=== PATIENT | male | born 1945 | race Caucasian/White ===

== ENCOUNTER 2024-01-15 06:09 | Observation (INO) ==
--- NOTE | 2023-12-11 11:26 | PAT Medication Instructions ---
Medication Instructions Date of Service December 11, 2023 Home Medications tamsulosin 0.4 mg capsule 0.4 mg PO HS Take evening before surgery tamsulosin 0.4 mg capsule 0.4 mg PO HS NOTHING TO EAT OR DRINK AFTER MIDNIGHT Other Notes If you have any questions please call us at [phone] or [phone] or [phone] or [phone]
--- NOTE | 2023-12-18 11:16 | Anesthesiology Consultation ---
Date of Service December 18, 2023 Assessment & Plan (1) Encounter for pre-operative examination: - Infectious disease screening: Per assessment on 12/18/23: No known recent infectious disease contacts or current infectious disease symptoms. - Outpatient joint assessment: Pt currently scheduled for inpatient pathway. If surgeon requests review for outpatient joint pathway, patient is not recommended candidate for outpatient joint program from anesthesia standpoint based on available information. - Patient acceptable risk for surgery pending surgeon-ordered PCP preop evaluat ion ([facility], appt 01/01). Chart Review Chart Review: Patient seen in Pre Admission Testing Teaching & Discussion Pre-Anesthesia Teaching/Discussion Notes: Instructed NPO after midnight before surgery,except medications with 15 cc of water. Medication instructions provided according to the PAT guidelines. History Surgery Operation Date: 01/15/24 07:00 Proposed Procedures p Left Total Knee Arthroplasty - Vaughn Avalos MD Height/Weight Height: 5 ft 10 in Weight: 75.5 kg Allergies Allergy/AdvReac Type Severity Reaction Status Date / Time adhesive tape Allergy Intermediate welts Verified 12/11/23 08:31 Medications Home Medications Medication Instructions Recorded Confirmed Last Taken tamsulosin 0.4 mg capsule 0.4 mg PO HS 02/20/19 12/11/23 Unknown Past Medical History Medical History History of prostate cancer Brachytherapy 2009 Osteoarthritis Hx of Clostridium difficile infection Required fecal matter transplant 2018 No current/recent issues History of diverticulitis Most recent flare 2018 Hx of hepatitis As child (? Type, "infectious") No current/recent issues Hx of cardiac pacemaker Implanted 2009 and removed after ablation 2010 (after SVT corrected) Hx of supraventricular tachycardia "Resolved" after 2010 ablation Evaluated by cardiology in 2019 for preop/dyspnea evaluation. [facility]HC was unremarkable. Advised to f/u with cardiology PRN. Patient underwent left carpectomy of wrist at outside facility without issue. Patient states patient feels stable/unchanged since last cardio evaluation (no new/worsening issues). Exercise / Class Metabolic Activity III < 4 Walking/Shop/Light housework (one FS: No CP, + SOB) Past Family History Family History Other No family history of adverse response to anesthesia No significant family history Past Surgical History Surgical History Status post cardiac pacemaker procedure Implanted 2009 and removed after ablation 2010 (after SVT corrected) Status post proximal row carpectomy of wrist Left H/O arthroscopy of left knee x2 H/O shoulder surgery Left Hx of vasectomy + reversal History of cataract surgery R/L History of discectomy lumbar Hx of prostate biopsy History of colonoscopy [place] teeth removed History of carpal tunnel release R/L History of cardiac cath Several, most recent [facility] 2018 No stents H/O cardiac radiofrequency ablation 2011 at [place], [place] Past Anesthesia History No Hx of Anesthesia Complications and No Family Hx of Anesthesia Complications History of PONV No Hx of PONV and No Hx of Motion Sickness Social History Smoking Status: Never smoker Do You Dip or Chew Tobacco: No Hx Alcohol Use: Yes Alcohol type: beer alcohol intake frequency: a few times a week substance use type: does not use Review of Systems Patient denies chest pain, shortness of breath, fever, chills, cough, wheezing, palpitations. Physical Exam Vital Signs BP 115/81 P 59 TEMP 97.6 SP02 97%RA RESP 18 Physical Full cervical extension range of motion. Full TMJ range of motion. TMD 3 finger breaths Mallampati Score I Dentition: intact Lungs: clear throughout to auscultation Cardiac: regular rate and rhythm, no murmurs noted Spine: normal Carotid arteries: negative bruit Extremities: no LE edema Lab Results Anesthesia Preop Results Results Anesthesia Widget: WBC 11.62 K/ul (4.8-10.8) H 12/18/23 Hgb 13.0 g/dl (14.0-18.0) L 12/18/23 Hct 39.5 % (42.0-52.0) L 12/18/23 Plt 298 K/uL (130-400) 12/18/23 Na 136 mmol/L (136-145) 12/18/23 K 4.2 mmol/L (3.5-5.1) 12/18/23 Cl 103 mmol/L (98-107) 12/18/23 CO2 27 mmol/L (21-32) 12/18/23 BUN 21 mg/dl (6-23) 12/18/23 Creat 0.81 mg/dl (0.6-1.4) 12/18/23 Glucose Level 99 mg/dl (70-99(Fasting)) 12/18/23 PT 10.3 Seconds (9.0-12.0) 12/18/23 PTT 28 Seconds (21-31) 12/18/23 INR 0.9 (0.9-1.1) 12/18/23 Urine Color Yellow 12/18/23 Urine Appearance Clear (Clear) 12/18/23 Urine pH 5.5 (4.5-7.5) 12/18/23 Urine Specific [place] 1.018 (1.000-1.030) 12/18/23 Urine Protein Negative (Negative) 12/18/23 Urine Glucose (UA) Negative (Negative) 12/18/23 Urine Ketones Negative (Negative) 12/18/23 Urine Blood Negative (Negative) 12/18/23 Urine Nitrite Negative (Negative) 12/18/23 Urine Bilirubin Negative (Negative) 12/18/23 Urine Urobilinogen Negative (Negative) 12/18/23 Urine Leukocyte Esterase Negative (Negative) 12/18/23 Blood Type O Positive 12/18/23 Antibody Screen NEGATIVE 12/18/23 Testing Electrocardiogram Date: 12/18/23 SB at 52bpm. 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 Chest X-Ray Date: 12/18/23 FINDINGS: Lung volumes are normal. Lungs are clear. There is no pneumothorax or pleural effusion. Cardiac size is normal. Mediastinal contours are normal. There is no evidence for pulmonary edema. A lead projecting over the right subclavian vein is unchanged in position since prior exam. IMPRESSION: No acute cardiopulmonary findings. Echocardiogram Date: 01/07/19 LVEF 55 to 60%. Borderline mild concentric LVH. Mildly redundant mitral valve leaflets with no significant prolapse.. Trace physiologic regurgitation and no stenosis. RV is normal in size and contractility. Normal RV/PA systolic pressure, estimated 25 mmHg. Cardiac Catheterization Date: 03/18/19 RHC Normal right and left-sided filling pressures with exercise. Reduced cardiac index. Recommendations: Continue observation.
--- NOTE | 2023-12-18 15:21 | History & Physical Report ---
Date of Service December 18, 2023 Assessment & Plan (1) Osteoarthritis of left knee: Plan: PRE-OP Diagnosis: Left knee osteoarthritis Planned Procedure: Left total knee arthroplasty Plan: Patient is scheduled to undergo this procedure at the [facility] with Dr. Avalos on Monday, January 15, 2024. Risks and complications of the procedure such as: Infection, bleeding, pain, scarring, nerve blood vessel damage, weakness, wound problems, stiffness, incomplete relief of symptoms, hardware failure, hardware loosening, wear, fracture, tendon or ligament injury, blood clots, embolism, cardiac, stroke and were explained to the patient at his visit today and informed consent for the procedure was obtained. We will need to obtain preoperative medical clearance from the patient's primary care provider. Patient is scheduled to meet with her on January 01 at 9:25 AM. Patient is scheduled to meet with anesthesia at the hospital later this morning. While there he will obtain a CBC with differential, complete metabolic panel, PT/INR, PTT, blood type and screen, urinalysis, urine culture and sensitivity, EKG and a chest x-ray. During today's visit we reviewed the total knee packet. I provided the patient with paperwork to obtain obtaining a handicap placard for his vehicle. I provided him with information about lectures offered by [facility] in regards to joint replacement surgery. Patient has a walker that he will bring with him on the morning of surgery. I recommended that he purchase a shower chair and raised toilet seat. We discussed discharge planning from the hospital. Patient states he will would like to do outpatient physical therapy following surgery and is already contacted a service near his home and [place]. I provided him with an order for this along with his rehab protocol.. I advised the patient that he will be provided with a prescription for narcotic pain medication for postoperative pain control. We will have him on Eliquis twice daily for the first 30 days postoperatively for blood clot prevention. Patient is scheduled for his 2-week postoperative follow-up visit with Claudia on January 29. This chart was completed utilizing [employer] voice recognition software. Grammatical errors, random word insertions, pronoun errors, and in complete sentences are an occasional consequence of the system. Any questions or concerns about the content, text, or information contained within the body of this dictation should be addressed directly to the physician for clarification. History of Present Illness Chief Complaint: Chief Complaint: Left knee pain Primary Care Provider: Albino De Oliveira MD History of Present Illness (including history relevant to procedure): This 78-year-old male presents to clinic today for his preoperative history and physical. Patient has a longstanding history of left knee pain with multiple trials of conservative management including multiple corticosteroid injections, use of nonsteroidal agents, viscosupplementation, PRP, radiofrequency ablation and 2 arthroscopic procedures. Patient states that his pain is persistent and intermittently radiates up and down his leg. He feels that his gait is affected and at times he does develop pain in his hip. 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 He states that he golfs on a regular basis and the pain in his knee makes it difficult to complete an entire round. Patient is elected to proceed with surgical intervention at this time. Review Of Systems: A 12 point review of systems is performed and is unremarkable except for those things stated in the HPI past medical history. Past Medical History: Problems: Osteoarthritis of left knee History of prostate cancer Procedure History Procedure Procedure Date Comments Spine surgery Shoulder surgery Cataract removal Carpectomy Left knee arthroscopy x 2 Bilateral carpal tunnel and cubital tunnel release Allergies and Sensitivities: Adhesives Current Home Meds: (Last Updated 12/17 09:42) tamsulosin (tamsulosin 0.4 mg oral capsule) 0.4 mg PO Daily Allergies Allergy/AdvReac Type Severity Reaction Status Date / Time adhesive tape Allergy Intermediate welts Verified 12/11/23 08:31 Home Medications Medication Instructions Recorded Confirmed Type tamsulosin 0.4 mg capsule 0.4 mg PO HS 02/20/19 12/11/23 History Past Med/Surg History Problem List (Updated 12/18/23 @ 15:20 by Gino Richards PA-C) Osteoarthritis of left knee Encounter for pre-operative examination Medical History History of prostate cancer Brachytherapy 2009 Osteoarthritis Hx of Clostridium difficile infection Required fecal matter transplant 2018 No current/recent issues History of diverticulitis Most recent flare 2018 Hx of hepatitis As child (? Type, "infectious") No current/recent issues Hx of cardiac pacemaker Implanted 2009 and removed after ablation 2010 (after SVT corrected) Hx of supraventricular tachycardia "Resolved" after 2011 ablation Evaluated by cardiology in 2019 for preop/dyspnea evaluation. RHC was unremarkable. Advised to f/u with cardiology PRN. Patient underwent left carpectomy of wrist at outside facility without issue. Patient states patient feels stable/unchanged since last cardio evaluation (no new/worsening issues). Surgical History Status post cardiac pacemaker procedure Implanted 2009 and removed after ablation 2010 (after SVT corrected) Status post proximal row carpectomy of wrist Left H/O arthroscopy of left knee x2 H/O shoulder surgery Left Hx of vasectomy + reversal History of cataract surgery R/L History of discectomy lumbar Hx of prostate biopsy History of colonoscopy [place] teeth removed History of carpal tunnel release R/L History of cardiac cath Several, most recent [facility]HC 2019 No stents H/O cardiac radiofrequency ablation 2011 at [place], [place] Family History Other No family history of adverse response to anesthesia No significant family history Social History Smoking Status: Never smoker Second Hand Exposure: Yes (as a child); Do You Dip or Chew Tobacco: No; Hx Alcohol Use: Yes Alcohol type: beer Preferred Language: Vietnamese Communication Ability: Effective Police Liaison Officer Required: No Beliefs That Will Affect Care: None Current Living Situation: Spouse Feels Safe at Home: Yes Assistive Devices: Glasses and Hearing Aid - Bilateral Review of Systems All systems reviewed & are unremarkable except as noted in Subjective Physical Exam Physical Exam: Physical Exam: (relevant to the procedure, including heart and lung evaluation) General: Alert and oriented x 3 with proper grooming and hygiene Eyes: Pupils are equal react light with accommodation. Extraocular movements are intact Throat: Posterior oropharynx clear with absence of edema, erythema or exudate Cardiac: Regular rate and rhythm with no murmurs or gallops appreciated Lungs: Clear to auscultation throughout with no wheezing, rales or rhonchi Abdomen: Nonobese, nondistended, nontender with NABS Extremities: Left knee; range of motion is from 10 degrees of extension to 108 degrees of flexion patient has visible varus malalignment. He experiences medial joint line tenderness when the knee is palpated in the flexed position. There is audible crepitation with passive range of motion. I was able to manipulate his patella with palpable crepitation. He had no laxity with varus or valgus stressing. AP drawer sign and Mere test are negative. Patient was neurovascularly intact in the left lower extremity. Neuro: Cranial nerves II through XII are intact no motor or sensory deficit Skin: Normal in appearance with no open skin areas or discharge Results & Data Diagnostic Findings Studies (relevant to the procedure): 4 views of the left knee taken at [facility] which shows medial joint space narrowing andchondrocalcinosis
--- NOTE | 2024-01-15 06:22 | History & Physical Bridge Note ---
Date of Service January 15, 2024 History & Physical Bridge Note I have examined the patient, reviewed the History & Physical and in the interval since the performance of the History & Physical I have noted the following changes of clinical significance: consent and site verified.no changes noted
[2024-01-15] MEDS ORDERED: EPINEPHrine INJ 1 MG/ML AMP ONE (06:25)
[2024-01-15] MEDS ORDERED: ROPIVACAINE 0.5% 5 MG/ML 30 ML VIAL ONE (06:25)
[2024-01-15] MEDS ORDERED: BUPIVACAINE 0.5 % 5 MG/1 ML PF 10ML VIAL ONE (06:25)
[2024-01-15] MEDS: LR 60ML/HR IV SCH (06:53)
[2024-01-15] MEDS: LR 500ML BOLUS, THEN 15ML/HR IV SCH (06:53)
[2024-01-15] MEDS ORDERED: PROPOFOL IV EMULSION 10 MG/ML 20 ML VIAL IV ONE ×2 (07:10→07:12)
[2024-01-15] MEDS ORDERED: LIDOCAINE 2% 2 ML VIAL/AMP(20MG/ML) INFIL ONE (07:10)
[2024-01-15] MEDS ORDERED: ONDANSETRON INJ 2 MG/ML 2 ML VIAL ONE (07:10)
[2024-01-15] MEDS ORDERED: DEXAMETHASONE SOD INJ 4 MG/ML VIAL ONE (07:10)
[2024-01-15] MEDS ORDERED: fentaNYL citrate PF 100 MCG/2 ML VIAL ONE (07:11)
[2024-01-15] MEDS ORDERED: MIDAZOLAM HCL 1 MG/ML 2ML VIAL ONE (07:11)
[2024-01-15] MEDS: TRANEXAMIC ACID 1,000 MG **IV Pre-op IV SCH (08:49)
[2024-01-15] MEDS: ceFAZolin 2000MG 2,000 MG/15 ML SYR IV SCH ×2 (09:08→18:40)
[2024-01-15] MEDS ORDERED: ePHEDrine sulfate 50 MG/5 ML SYR ONE (09:41)
[2024-01-15] MEDS ORDERED: ATROPINE SULFATE 0.1 MG/ML 10ML SYR IV PRN (10:00)
[2024-01-15] MEDS ORDERED: ePHEDrine sulfate 50 MG/ML AMP IV PRN (10:00)
[2024-01-15] MEDS: TRANEXAMIC ACID 1,000 MG **IV Intra-op IV SCH (10:17)
[2024-01-15] MEDS: ORTHO JOINT ANESTHETIC ONE (10:17)
[2024-01-15] MEDS: ROPIVACAINE 0.5% HCL/PF 246 MG, Ketorolac (*for OR use only*) 30 MG, EPINEPHrine 30MG/3... INFIL SCH (10:17)
--- OUTSIDE RECORDS SUMMARY | 2024-01-15 10:38 | External Medical Summary | Summary of Care ---
Author Name Unknown Organization [facility] Address [address] [place] [address] Phone [phone] Care Team Providers Care Solar Energy Sales Specialist Name Role Phone Yamilet Mc MD Primary Care Provider Encounter Details Date Type Department Care Team (Late st Contact Info) Description 12/19/2023 Result Scan Unspecified Department <No scans attached> Allergies Active Allergy Reactions Criticality Noted Date Comments Adhesive Tape Hives,Rash 12/20/2010 BLISTERS LIKE POSION REJI (ELAST0 PLAST) BLISTERS LIKE POSION REJI (ELAST0 PLAST) Pollen 04/05/2021 sEASONAL ALLERGIES Pollen Extract 07/08/2020 documented as of this encounter (statuses as of 01/14/2024) Medications Medication Sig Dispensed Refills Start Date End Date Status Tamsulosin HCl 0.4 MG Oral Capsule (Flomax) Take 1 Capsule by mouth every evening. Active documented as of this encounter (statuses as of 01/14/2024) Active Problems Problem Noted Date Diagnosed Date History of sleep apnea 01/02/2024 History of melanoma 12/27/2021 Overview: New melanoma in situ 02/07/23 Diverticulitis 04/01/2017 History of Clostridioides difficile colitis 04/2017 Overview: s/p fecal transplant History of prostate cancer 04/01/2009 Overview: [facility], brachytherapy. Dr Perez Hepatitis A 04/01/1955 documented as of this encounter (statuses as of 01/14/2024) Immunizations Name Administration Dates Next Due COVID-19 mRNA, LNP-s, No Pre serve, 2-Dose Series ([employer]) 04/12/2020,03/22/2020 COVID-19, LNP-s, No Preserve , Wing-sucrose, Ages 12+ (Pfizer) 04/04/2021 Covid-19, Mrna, Lnp-s, Pf, B ivalent, 30 Mcg, IM, 12 yrs and above (Pfizer) 01/09/2022 Pneumococcal Conjugate Vacc, 13 Valent (Prevnar) 08/16/2017 Pneumococcal Polysaccharide PPV23 (Pneumovax) RSV Vac., Bivalent, Perfusion F, Pf,0.5 Ml (Abry svo) 12/06/2022 Seasonal Influenza Virus Vac cine, Unspecified Formulation 11/24/2020,12/31/2019 Seasonal Influenza, High Dos e, Trivalent, PF, IM (Fluzone HD) 12/30/2017,11/30/2016 Seasonal Influenza, PF, 6 M & above, IM , (FluLaval or Fluzone) 12/31/2019 Seasonal Influenza, Quadrivalent Hd (Fluzone Hd) 12/27/2021 Seasonal Influenza, Quadrivalent, No Preserve, I M 11/24/2020 TDAP (age 10 and older)(Boostrix) 12/31/2016 Varicella Zoster Vaccine (Adult) 11/27/2005 Zoster Vaccine Recombinant (Shingrix) 02/08/2022 documented as of this encounter Social History Tobacco Use Types Packs/Day Years Used Date Smoking Tobacco: Never Smokeless Tobacco: Never Alcohol Use Standard Drinks/Week Comments Not Currently 0 (1 standard drink = 0.6 oz pur e alcohol) a few beers a week PHQ-2 Answer Date Recorded PHQ Adult Total Score 0 12/28/2022 Hunger Vital Sign Answer Date Recorded Within the past 12 months, y ou worried that your food would run out before you got the money to buy more. Never true 12/29/19 23 Within the past 12 months, t he food you bought just didn't last and you didn't have money to get more. Never true 12/28/2022 Childcare Answer Date Recorded Do you feel overwhelmed with taking care of a child, family member or friend? No 12/28/2022 Does your family need help f inding childcare? (Household - for ages 0-17 years) Not on file 12/28/2022 Clothing Answer Date Recorded Have you been unable to get clothing when it was really needed? No 12/28/2022 Is your family able to get c lothes or diapers when needed? (Household - for ages 0-17 years) Not on file 12/28/2022 Personal Safety Answer Date Recorded Do you feel unsafe or have concerns for your saf ety? No 12/28/2022 Do you have concerns for you r family's safety? (Household - for ages 0-17 years) Not on file 12/28/2022 Utilities Answer Date Recorded Do you have trouble paying y our heating, water, or electric bill? (Adult - for ages 18 years and over) Not on file 12/30/2023 Is your family able to pay t he heat, water, or electric bill? (Household - for ages 0-17 years) Not on file 12/30/2023 Does your family have access to good internet? (Household - for ages 0-17 years) Not on file 12/30/2023 Employment Status Answer Date Recorded Are you unemployed or without regular income? No 12/28/2022 Does the household have a re lar source of income? (Household - for ages 0-17 years) Not on file 12/28/2022 Social Connections Answer Date Recorded How often do you feel lonely or isolated from those around you? (Adult - for ages 18 years and over) Not on file 12/30/2023 Financial Resource Strain Answer Date R ecorded Do you have any trouble payi ng for your medications, or do you think you might in the future? No 12/28/2022 Does your family have troubl e paying for medicine? (Household - for ages 0-17 years) Not on file 12/28/2022 Transportation Needs Answer Date Record ed READ ONLY Do you have troubl e getting a ride to medical visits or work? Never True 12/28/2022 Does your family have a hard time getting a ride to doctors visits? (Household - for ages 0-17 years) Not on file 12/28/2022 Has lack of transportation k ept you from medical appointments, meetings, work, or from getting things needed for daily living? Check all that apply. (Adult - for ages 18 years and over) Not on file 12/28/2022 Do you (or your family) have trouble finding or paying for a ride (transportation)? (Household - for ages 0-17 years) Not on file 12/28/2022 Housing Stability Answer Date Recorded Do you currently live in a s helter or have no steady place to sleep at night? No 12/28/2022 READ ONLY Do you think you a re at risk of becoming homeless? No 12/28/2022 Does your family worry about paying for your home or becoming homeless? (Household - for ages 0-17 years) Not on file 0 12/28/2022 Are you homeless or worried that you might be in the future? (Adult - for ages 18 years and over) Not on file Are you (or your family) april eless or worried that you might be in the future? (Household - for ages 0-17 years) Not on file Food Insecurity Answer Date Recorded Do you need food for this week? No 12/28/2022 Are you able to get enough f ood for your family? (Household - for ages 0-17 years) Not on file 12/28/2022 Does your family need food t his week? (Household - for ages 0-17 years) Not on file 12/28/2022 Do you always have enough fo od for your family? (Household - for ages 0-17 years) Not on file 12/28/2022 Sex and Gender Information Value Date Recorded Sex Assigned at Male 12/28/2022 12:48 PM EDT Gender Identity Male 12/28/2022 12:48 PM EDT Sexual Orientation Straight 12/28/2022 12 :48 PM EDT Job Start Date Occupation Industry Not on file Not on file Not on file documented as of this encounter Plan of Treatment Upcoming Encounters Date Type Department Care Team (Late st Contact Info) Description 07/09/2024 8:30 AM EDT Therapy [facility] [address] [place] [address] Axel Malhotra, PhD [address] [place] [id number] Health Maintenance Due Date Last Done Comments Adult Wellness Visit 11/18/2009 Zoster Vaccines (3 of 3) 04/05/2022 02/08/2022, 10/31 COVID-19 Vaccine ( season) 2023 12/31/2022, 01/09/2022, 04/04/2021, Additional history exists Influenza Vaccine (FLU shot) (#1) 2023 12/06/2022, 12/27/2021, 11/24/2020, Additional history exists Depression Screening 12/29/2023 12/28/2022 DTap/Tdap Vaccines (2 - Td or Tdap) 12/31/2026 12/31/2016 Pneumococcal Vaccine: 65+ Years Completed 12/27/2021, 08/16/2017, 12/28/2015 HPV (Gardasil) Vaccine Aged Out No lo nger eligible based on patient's age to complete this topic Hepatitis B Vaccine Aged Out No longe r eligible based on patient's age to complete this topic MENINGOCOCCAL (MENACTRA/MENVEO) Aged Out No longer eligible based on patient's age to complete this topic documented as of this encounter Medical Devices Implanted Type Area Technical Operations Manager Device Identifier Shelf Expiration Date Model / Serial / Lot Lens Intraoc 19.0 - [id number] - [id number] Implanted:Qty: 1 on 07/17/2022 by Orlando Dowling MD at [facility] Right: Eye [employer] 05/01/2027 [id number] / [id number] / [id number] Lens Intraoc 18.5 - [id number] - [id number] Implanted:Qty: 1 on 07/24/2022 by Orlando Dowling MD at [facility] Left: Eye [employer]OM[employer] 05/01/2027 [id number] / [id number] / [id number] documented as of this encounter Procedures Procedure Name Priority Date/Time Associated Diagnosis Comments EKG SCANNED RESULT 12/19/2023 documented in this encounter Results * EKG SCANNED RESULT (12/19/2023) 12/19/2023 No Physician Data Unknown EKG documented in this encounter Advance Directives * No Code (Latest Code Status on File) Date Activated Date Inactivated Comments 07/24/2022 8:29 AM 07/24/2022 2:37 PM This order r eflects the patients wishes and were consensually agreed upon. Question Answer Comments Discussion of Advance Directives occurred with: Patient Does the patient have a Living Will? No Does the patient have Health Care Power of Attor avery? No * No Code Date Activated Date Inactivated Comments 07/17/2022 12:12 PM 07/17/2022 6:02 PM This order reflects the patients wishes and were consensually agreed upon. Question Answer Comments Discussion of Advance Directives occurred with: Patient Does the patient have a Living Will? No Does the patient have Health Care Power of Attor avery? No Care Teams Solar Energy Sales Specialist Relationship Specialty Start Date End Date Yamilet Mc MD [address] [place] [id number] PCP - General Internal Medicine 12/22/20 documented as of this encounter
--- OUTSIDE RECORDS SUMMARY | 2024-01-15 10:38 | External Medical Summary | Summary of Care ---
Author Name Unknown Organization [facility] Address [address] [facility] [place] [address] Phone [phone] Care Team Providers Care Truck Driver Salesperson Name Role Phone Yamilet Mc MD Primary Care Provider Reason for Visit * Reason Comments Physical-Exam pre-op exam Encounter Details Date Type Department Care Team (Latest Contact Info) Description 01/02/2024 9:40 AM EDT Office Visit [facility] [address] [place] [address] Yamilet Mc MD [address] [place] [address] Osteoarthritis of left knee, unspecified osteoarthritis type*; History of prostate cancer; Need for RSV vaccination Allergies Active Allergy Reactions Criticality Noted Date Comments Adhesive Tape Hives,Rash 12/20/2010 BLISTERS LIKE POSION REJI (ELAST0 PLAST) BLISTERS LIKE POSION REJI (ELAST0 PLAST) Pollen 04/05/2021 sEASONAL ALLERGIES Pollen Extract 07/08/2020 documented as of this encounter (statuses as of 01/02/2024) Medications Medication Sig Dispensed Refills Start Date End Date Status Tamsulosin HCl 0.4 MG Oral Capsule (Flomax) Take 1 Capsule by mouth every evening. Active RSV Pre-Fusion F A&B Vac Rcmb 120 MCG/0.5ML Intramuscular Solution Reconstituted (Abrysvo)Indications:N eed for RSV vaccination Inject 0.5 mL into a large muscle once for 1 dose. 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 Dr Perez Hepatitis A 04/01/1955 documented as of this encounter (statuses as of 01/02/2024) Immunizations Name Administration Dates Next Due COVID-19 mRNA, LNP-s, No Pre serve, 2-Dose Series (2sms) 04/12/2020,03/22/2020 COVID-19, LNP-s, No Preserve , Wing-sucrose, [...] 12/28/2022 Does the household have a re gular source of income? (Household - for ages [...] on file documented as of this encounter Last Filed Vital Signs Vital Sign Reading Time Taken Comments Blood Pressure 110/78 01/02/2024 8:54 AM EDT Pulse 60 01/02/2024 8:54 AM EDT Temperature - - Respiratory Rate - - Oxygen Saturation - - Inhaled Oxygen Concentration - - Weight 74.1 kg (163 lb 6 oz) 01/02/2024 8:54 AM EDT Height 177.8 cm (5' 10") 01/02/2024 8:54 AM EDT Body Mass Index 23.44 01/02/2024 8:54 AM EDT documented in this encounter Patient Instructions * Patient Instructions* Yamilet Mc MD - 01/02/2024 9:29 AM EDT Possible Next Steps: -- neuropsychology testing to better understand current cognitive function -- try wearing mandibular advancement device consistently for at least a couple weeks to see if helps with energy, sleeping and cognitive function -- we can consider repeat sleep study -- consider repeating testosterone level -- probiotic to prevent C diff. -- revisit pneumonia vaccine in 2026 documented in this encounter Progress Notes * Yamilet Mc MD - 01/02/2024 9:06 AM EDT Images from the original note were not included. Pre-Operative Medical Evaluation Procedure Information Type of Surgery: total knee replacement Referring Physician / Surgeon: Dr Avalos Date of procedure: 01/15/24 Brief History of Present Illness: Had visit with anesthesia at [facility] already. Extensive cardiac workup in past for dyspnea on exertion at [facility] and [place], unrevealing. Saw Neurology last March for possible neurologic cause dyspnea on exertion. Extensive myositis, glycogen storage and myasthenia gravis workup negative. Urology workup for diabetes insipidus was negative. Still has nocturia 4-5 times a night. History of Cdiff 10 years ago - took four courses of antibiotics to clear, and ultimately fecal transplant. History of testosterone supplementation in the past, did not yield improvement in energy levels or dyspnea on exertion. Still riding an ebike, can pedal for a long time on a flat surface, short of breath on an incline. Review of Systems Constitutional: Positive for fatigue. Negative for fever and unexpected weight change. Eyes: Negative for visual disturbance. Respiratory: Positive for shortness of breath. Cardiovascular: Negative for chest pain, palpitations and leg swelling. Gastrointestinal: Negative for constipation and diarrhea. Genitourinary: Negative for dysuria. Nocturia Musculoskeletal: Cramps at night if has a more active day Skin: Negative for rash and wound. Neurological: Loses balance more easily, not falling Hematological: Bruises/bleeds easily. Psychiatric/Behavioral: Positive for sleep disturbance (Snores loudly). Has noticed cognitive decline CMP, CBC and coags reviewed from mid November. Mildly low Hg at 13.0. Was 14.8 04/2021. Cologuard negative. Medical History Problem List: History of sleep apnea (01/02/2024) History of melanoma (12/27/2021) Diverticulitis (2017) History of Clostridioides difficile colitis (2017) History of prostate cancer (2009) Hepatitis A (1955) Current Medications RSV Pre-Fusion F A&B Vac Rcmb 120 MCG/0.5ML Intramuscular Solution Reconstituted (Abrysvo), 0.5mL, Intramuscular, Once Tamsulosin HCl 0.4 MG Oral Capsule (Flomax), 0.4 mg, Oral, QPM 1999 Allergies: Adhesive tape, Pollen, and Pollen extract Past Medical History: has a past medical history of C. difficile colitis (2017), Diverticulitis (2017), Hepatitis A (1955), History of melanoma (12/27/2021), and Prostate cancer (HCC) (2009). Past Surgical History: has a past surgical history that includes vasectomy (Bilateral, 1974); Lumbar Discectomy, Perc (1979); colonoscopy (1992); knee arthroscopy/meniscectomy (1991); colonoscopy (1997); colonoscopy (2011); remove cataract, insert lens prosth (Right, 07/17/2022); and remove cataract, insert lens prosth (Left, 07/24/2022). Social History: reports that he has never smoked. He has never used smokeless tobacco. He reports that he does not currently use alcohol. He reports that he does not use drugs. Family History: family history includes Heart disease in his brother and father; Macular degeneration in his mother; Multiple myeloma in his father; Transient ischemic attack in his father; aortic valve in his father; small bowel infarction in his mother. Anesthesia History Type of Anesthesia: spinal anesthesia with versed Anesthesia reaction: No History of surgical complications: none Personal history of venous thromboembolic disease: none Physical Exam Vitals: 01/02/24 0854 Pulse: 60 BP: 110/78 BMI: 23.44 Physical Exam Vitals and nursing note reviewed. Constitutional: General: He is not in acute distress. Appearance: Normal appearance. He is not ill-appearing. HENT: Head: Normocephalic and atraumatic. Right Ear: Tympanic membrane, ear canal and external ear normal. There is no impacted cerumen. Left Ear: Tympanic membrane, ear canal and external ear normal. There is no impacted cerumen. Nose: Nose normal. Mouth/Throat: Mouth: Mucous membranes are moist. Pharynx: Oropharynx is clear. No oropharyngeal exudate. Eyes: General: No scleral icterus. Right eye: No discharge. Left eye: No discharge. Conjunctiva/sclera: Conjunctivae normal. Pupils: Pupils are equal, round, and reactive to light. Neck: Thyroid: No thyroid mass, thyromegaly or thyroid tenderness. Cardiovascular: Rate and Rhythm: Normal rate and regular rhythm. Heart sounds: No murmur heard. Pulmonary: Effort: Pulmonary effort is normal. Breath sounds: Normal breath sounds. Musculoskeletal: Right lower leg: No edema. Left lower leg: No edema. Lymphadenopathy: Cervical: No cervical adenopathy. Skin: General: Skin is warm and dry. Neurological: Mental Status: He is alert. Psychiatric: Mood and Affect: Mood normal. Behavior: Behavior normal. Labs reviewed and are significant for: Mildly low hemoglobin EKG by my review is significant for: bradycardia Surgical Risk Scoring Revised Cardiac Risk Index (RCRI) High-risk type of surgery (examples include vascular and any open intraperitoneal or intrathoracic procedures): 0=No History of ischemic heart disease (history of myocardial infarction or positive exercise test, current compliant of chest pain considered to be secondary to myocardia ischemia, use of nitrate therapy, or ECG with pathological Q waves; do not count prior coronary revascularization procedure unless one of the other criteria for ischemic heart disease is present): 0=No History of heart failure: 0=No History of cerebrovascular disease: 0=No Diabetes mellitus requiring treatment with insulin: 0=No Preoperative serum creatinine >2.0 mg/dL (177 micromol/L): 0=No Pt has revised cardiac index score of: No Risk Factors- 0.4% (95% CI: 0.1-0.8) Screening for Obstructive Sleep Apnea (STOP-BANG) Do you Snore loudly? 1=Yes Do you often feel Tired, Fatigued, or Sleep? 1=Yes Has anyone Observed you Stop Breathing or Choking/Gasping during sleep? 0=No Do you have or are you being treated for High Blood Pressure? 0=No BMI over 35? 0=No Age older than 50? 1=Yes Neck size large? (For males - 17 inches or larger, For females - 16 inches or larger) 0=No Male? 1=Yes Score 0-2:low risk HERVE, 3-4: intermediate risk of HERVE, 5-8: high risk HERVE 4 Assessment and Plan Osteoarthritis of left knee, unspecified osteoarthritis type History of prostate cancer Need for RSV vaccination - RSV Pre-Fusion F A&B Vac Rcmb 120 MCG/0.5ML Intramuscular Solution Reconstituted (Abrysvo); Inject 0.5 mL into a large muscle once for 1 dose. Functional Assessment They are able to walk up a flight of stairs, walk two blocks at a moderate pace, do heavy house work like vacuuming, grocery shop, and golf using cart . The patient's functional status is good (greater than 4 METS). 1 MET: 4 METs: 4-10 METs: Can take care of self, such as eat, dress or use the toilet. Can walk to block or go up a flight of steps. Can do heavy house work. Surgical Risk Assessment Patient is low medical risk for the listed procedure. Medication adjustments: none Additional consults or testing: None Patient Instructions Possible Next Steps: -- neuropsychology testing to better understand current cognitive function -- try wearing mandibular advancement device consistently for at least a couple weeks to see if helps with energy, sleeping and cognitive function -- we can consider repeat sleep study -- consider repeating testosterone level -- probiotic to prevent C diff. -- revisit pneumonia vaccine in 2026 I have advised the patient to call our office in case of any worsening or new symptoms. The above was discussed and understanding was expressed. I spent a total of 45 minutes on the date of service in preparation, delivery and documentation of the care provided to Pollo Kramer MD excluding any time spent in the performance of any procedure or separately billable services. Yamilet Mc MD [facility] documented in this encounter Plan of Treatment Health Maintenance Due Date Last Done Comments [...] this encounter Medical Devices Implanted Type Area Helper [employer] Device Identifier Shelf Expiration Date Model / Serial / Lot Lens Intraoc 19.0 - [id number] - [id number] Implanted:Qty: 1 on 07/17/2022 by Orlando Dowling MD at [facility] Right: Eye [employer] 05/01/2027 [id number] / [id number] / [id number] Lens Intraoc 18.5 - [id number] - [id number] Implanted:Qty: 1 on 07/24/2022 by Orlando Dowlign MD at [facility] Left: Eye [employer]OMB 05/01/2027 [id number] / [id number] / [id number] documented as of this encounter Visit Diagnoses Diagnosis Osteoarthritis of left knee, unspecified osteoarthritis type- Primary History of prostate cancer Personal history of malignant neoplasm of prostate Need for RSV vaccination Need for prophylactic vaccination and inoculation against respiratory syncytial virus documented in this encounter Advance Directives * [...] Power of Attor avery? No Care Teams Truck Driver Salesperson Relationship Specialty Start Date End Date Yamilet Mc MD [address] [place] [address] PCP - General Internal Medicine 12/22/20 documented as of this encounter
--- OUTSIDE RECORDS SUMMARY | 2024-01-15 10:38 | External Medical Summary | Summary of Care ---
Author Name Unknown Organization [facility] Address [address] [facility] [place] [address] Phone [phone] Care Team Providers Care Provider Relations Consultant Name Role Phone Yamilet Mc MD Primary Care Provider Encounter Details Date Type Department Care Team (Late st Contact Info) Description 12/20/2023 Orders Only Family Practice [facility] [address] [place] [address] Yamilet Mc MD [address] [place] [phone] Allergies Active Allergy Reactions Criticality Noted Date Comments Adhesive Tape Hives,Rash 12/20/2010 BLISTERS LIKE POSION REJI (ELAST0 PLAST) BLISTERS LIKE POSION REJI (ELAST0 PLAST) Pollen 04/05/2021 sEASONAL ALLERGIES Pollen Extract 07/08/2020 documented as of this encounter (statuses as of 12/20/2023) Medications Medication Sig Dispensed Refills Start Date End Date Status Tamsulosin HCl 0.4 MG Oral Capsule (Flomax) Take 1 Capsule by mouth every evening. Active documented as of this encounter (statuses as of 12/20/2023) Active Problems Problem Noted Date Diagnosed Date History of melanoma 12/27/2021 Overview: New melanoma in situ 02/07/23 Diverticulitis 04/01/2017 C. difficile colitis 04/01/2017 Overview: s/p fecal transplant Prostate cancer 04/01/2009 Overview: [facility], brachytherapy. Dr Perez Hepatitis A 04/01/1955 documented as of this encounter (statuses as of 12/20/2023) Immunizations Name Administration Dates Next Due COVID-19 mRNA, LNP-s, No Pre serve, 2-Dose Series (Pfizer) 04/12/2020,03/22/2020 COVID-19, LNP-s, No Preserve , Wing-sucrose, [...] y our heating, water, or electric bill? No 12/28/2022 Is your family able to pay t he heat, water, or electric bill? (Household - for ages 0-17 years) Not on file 12/28/2022 Does your family have access to good internet? (Household - for ages 0-17 years) Not on file 12/28/2022 Employment Status Answer Date Recorded Are you unemployed or without regular income? No 12/28/2022 Does the household have a re lar source of income? (Household - for ages 0-17 years) Not on file 12/28/2022 Social Connections Answer Date Recorded How often do you feel lonely or isolated from th ose around you? Never 12/28/2022 Financial Resource Strain Answer Date R ecorded [...] Care Team (Late st Contact Info) Description 01/02/2024 9:40 AM EDT Office Visit Family Practice [facility] [address] [place] [address] Yamilet Mc MD [address] [place] [address] Health Maintenance Due Date Last Done Comments [...] this encounter Medical Devices Implanted Type Area Four Slide Machine Setter Device Identifier Shelf Expiration Date Model / Serial / Lot Lens Intraoc 19.0 - [id number] - [id number] Implanted:Qty: 1 on 07/17/2022 by Orlando Dowling MD at [facility] Right: Eye [employer]CH [employer] LOMB 05/01/2027 [id number] / [id number] / [id number] Lens Intraoc 18.5 - [id number] - [id number] Implanted:Qty: 1 on 07/24/2022 by Orlando Dowling MD at [facility] Left: Eye BAUSCH [employer] LOMB 05/01/2027 [id number] / [id number] / [id number] documented as of this encounter Procedures Procedure Name Priority Date/Time Associated Diagnosis Comments XR CHEST 2 VIEWS Routine 12/18/2023 CHEMISTRY-OUTSIDE Routine 12/18/2023 documented in this encounter Results * (ABNORMAL) CHEMISTRY-OUTSIDE (12/18/2023) Not all results display below - see scan for full detail OUTSIDE LAB (SEE SCANNED REPORT) Comment:SCAN INCLUDES: CMP, PT/INR, PTT, CBCD, UA CREATININE 0.81 0.6 - 1.4 MG/DL OUTSIDE LAB (SEE SCANNED REPORT) EGFR 83.9 ML/MIN OUTSIDE LA B (SEE SCANNED REPORT) POTASSIUM 4.2 3.5 - 5.1 MMOL/L OUTSIDE LAB (SEE SCANNED REPORT) GLUCOSE 99 70 - 99 MG/DL OUTSIDE LAB (SEE SCANNED REPORT) HOURS FASTING OUTSID E LAB (SEE SCANNED REPORT) TRIGLYCERIDES-OU TSIDE LAB OUTSIDE LAB (SEE SCANNED REPORT) CHOLESTEROL-OUTS SUSIE LAB OUTSIDE LAB (SEE SCANNED REPORT) HDL-OUTSIDE LAB OUTS SUSIE LAB (SEE SCANNED REPORT) CHOL/HDL RATIO-OUTSIDE LAB OUTSIDE LAB (SEE SCANNED REPORT) LDL (CALCULATED)-OUT SIDE LAB OUTSIDE LAB (SEE SCANNED REPORT) LDL (DIRECT MEASURE)-OUTSIDE LAB OUTSIDE LAB (SEE SCANNED REPORT) HEMOGLOBIN, O3W-[place] LAB OUTSIDE LAB (SEE SCANNED REPORT) PHOSPHORUS-OUTSI DE LAB OUTSIDE LAB (SEE SCANNED REPORT) PTH-OUTSIDE LAB OUTS SUSIE LAB (SEE SCANNED REPORT) MICROALBUMIN RATIO-OUTSIDE LAB OUTSIDE LAB (SEE SCANNED REPORT) PROTEIN, UA-OUTSIDE LAB NEGATIVE NEGATIVE OUTSIDE LAB (SEE SCANNED REPORT) HGB 13.0(A) 14.0 - 18.0 G/DL OUTSIDE LAB (SEE SCANNED REPORT) 12/18/2023 Vaughn Avalos MD LABORATORY OUTSIDE LAB (SEE SCANNED REPORT) * XR CHEST 2 VIEWS (12/18/2023) Anatomical Region Laterality Modality Chest Other 12/18/2023 Vaughn Avalos MD RADIOLOGY (RAD GENERAL) documented in this encounter Advance Directives * [...] Power of Attor avery? No Care Teams Provider Relations Consultant Relationship Specialty Start Date End Date Yamilet Mc MD [address] [place] [address] PCP - General Internal Medicine 12/22/20 documented as of this encounter
--- OUTSIDE RECORDS SUMMARY | 2024-01-15 10:38 | External Medical Summary | Continuity of Care Document ---
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 Name Role Phone Yamilet Mc Primary Care Physician [phone] Encounter [facility] [id number] Date(s): 12/18/23 - 12/18/23 [facility] [address] [id number] [facility] [address] [place] [id number] Encounter Diagnosis Preop examination(Discharge Diagnosis) - 12/18/23 Osteoarthritis of left knee(Discharge Diagnosis) - 12/18/23 Discharge Disposition: Home or Self Care Attending Physician: EVY Richards Dennis Referring Physician: MD Bailey, Vaughn Henriquez Allergies, Adverse Reactions, Alerts No Known Allergies Medications tamsulosin 0.4 mg oral capsule Start: 12/09/23 9:48:00 AM EDT, 1 cap, PO, Daily Start Date: 12/09/23 Status: Ordered Mental Status 12/18/23 Barriers to Learning one year None evide nt Mandatory Health Literacy Documentation Yes Health Literacy Communication Barriers N ever Primary Language Venezuelan Problem List Condition Confirmation Course Effective Dates Status H ealth Status Informant Osteoarthritis of left knee Confirmed Active Diagnosis Diagnosis Type Effective Dates Health Status Clinical Service Informant Preop examination Discharge Diagnosis 12/18/23 Osteoarthritis of left knee Discharge Diagnosis 12/18/23 Vital Signs Most recent to oldest [Reference Range]: 1 Temperature [36.5-37.9 DegC] 36.4 DegC *LOW* (12/18/23 9:43 AM) Respiratory Rate 20 br/min (12/18/23 9:43 AM) Blood Pressure 110/62mmHg (12/18/23 9:43 AM) Cuff Pulse Pressure 48 mmHg (12/18/23 9:43 AM) Social History Social History Type Response Smoking Status Never smoked cigaret babar Sex Male Sex Representation Male (finding) Pre-OP H & P * EVY Richards, Gino: PERFORM Event Display: Pre-OP H & P Authored Date: [id number] PRE-OPERATIVE HISTORY AND PHYSICAL Name: JORGE WHITEHEAD Patient Number: [id number] : 1945 Date of Service: 12/18/2023 PRE-OP Diagnosis: Left knee osteoarthritis Planned Procedure: Left total knee arthroplasty Chief Complaint: Left knee pain History of Present Illness (including history relevant to procedure): This 78-year-old male presents to clinic today for his preoperative history and physical. Patient has a longstanding history of left knee pain with multiple trials of conservative management including multiple corticosteroid injections, use of nonsteroidal agents, viscosupplementation, PRP, radiofrequency ablation and 2 arthroscopic procedures. Patient states that his pain is persistent and intermittently radiates up and downhis leg. He feels that his gait is affected and at times he does develop pain in his hip. 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 He states that he golfs on a regular basis and the pain in his knee makes it difficult to complete an entire round. Patient is elected to proceed with surgical intervention at this time. Review Of Systems: A 12 point review of systems is performed and is unremarkable except for those things stated in the HPI past medical history. Past Medical History: Problems: Osteoarthritis of left knee History of prostate cancer Procedure History Procedure Procedure Date Comments Spine surgery Shoulder surgery Cataract removal Carpectomy Left knee arthroscopy x 2 Bilateral carpal tunnel and cubital tunnel release Allergies and Sensitivities: Adhesives Current Home Meds: (Last Updated 12/17 09:42) tamsulosin (tamsulosin 0.4 mg oral capsule) 0.4 mg PO Daily Vitals: Last Updated 12/18/23 09:43 Weights: No Weight Data Available Date Temp Pulse BP RR SpO2 FIO2 Date Wt(kg) Wt(lb) 12/17 09:43 36.4 110/62 20 99 24 Hr Tmax: 36.4 at 12/17 09:43 Initial Wt: No Data Available Physical Exam: (relevant to the procedure, including heart and lung evaluation) General: Alert and oriented x 3 with proper grooming and hygiene Eyes: Pupils are equal react light with accommodation. Extraocular movements are intact Throat: Posterior oropharynx clear with absence of edema, erythema or exudate Cardiac: Regular rate and rhythm with no murmurs or gallops appreciated Lungs: Clear to auscultation throughout with no wheezing, rales or rhonchi Abdomen: Nonobese, nondistended, nontender with NABS Extremities: Left knee; range of motion is from 10 degrees of extension to 108 degrees of flexion patient has visible varus malalignment. He experiences medial joint line tenderness when the knee is palpated in the flexed position. There is audible crepitation with passive range of motion. I was able to manipulate his patella with palpable crepitation. He had no laxity with varus or valgus stressi ng. AP drawer sign and Mere test are negative. Patient was neurovascularly intact in the left lower extremity. Neuro: Cranial nerves II through XII are intact no motor or sensory deficit Skin: Normal in appearance with no open skin areas or discharge Studies (relevant to the procedure): 4 views of the left knee taken at [facility] which shows medial joint space narrowing andchondrocalcinosis Plan: Patient is scheduled to undergo this procedure at the [facility] with Dr. Avalos on Monday, January 15, 2024. Risks and complications of the procedure such as: Infection, bleeding, pain, scarring, nerve blood vessel damage, weakness, wound problems, stiffness, incomplete relief of symptoms, hardware failure, hardware loosening, wear, fracture, tendon or ligament injury, blood clots, embolism, cardiac, stroke and were explained to the patient at his visit today and informed consent for the procedure was obtained. We will need to obtain preoperative medical clearance from the patient's primary care provider. Patient is scheduled to meet with her on January 01 at 9:25 AM. Patient is scheduled to meet with anesthesia at the hospital later this morning. While there he will obtain a CBC with differential, complete metabolic panel, PT/INR, PTT, blood typeand screen, urinalysis, urine culture and sensitivity, EKG and a chest x-ray. During today's visit we reviewed the total knee packet. I provided the patient with paperwork to obtain obtaining a handicap placard for his vehicle. I provided him with information about lectures offered by [facility] in regards to joint replacement surgery. Patient has a walker that he will bring with him on the morning of surgery. I recommended that he purchase a shower chair and raised toilet seat. We discussed discharge planning from the hospital. Patient states he will would like to do outpatient physical therapy following surgery and is already contacted a service near his home and [place].I provided him with an order for this along with his rehab protocol.. I advised the patient that chu be provided with a prescription for narcotic pain medication for postoperative pain control. We will have him on Eliquis twice daily for the first 30 days postoperatively for blood clot prevention. Patient is scheduled for his 2-week postoperative follow-up visit with Claudia on January 29. This chart was completed utilizing [employer] voice recognition software. Grammatical errors,random word insertions, pronoun errors, and in complete sentences are an occasional consequence of the system. Any questions or concerns about the content, text, or information contained within the body of this dictation should be addressed directly to the physician for clarification. Electronic Signature on File CC: Yamilet Mc MD [facility] [address] [facility] [id number] * Electronically Reviewed/Signed by: Gino Richards PA-C Author Signature Dt/Tm:12/18/2023 03:13 PM Division of Sports Medicine Electronically Reviewed/Signed by: MD Tamia Jonesigner Signature Dt/Tm: 12/18/2023 03:28 PM Component Assembler for Clinical Affairs, [facility] Sameera Professor in Orthopaedics Digital Marketing Project Manager, [facility] Patient Care team information Care Team Personnel Name: MD Mc Micaela C Position: Referring Member Role: Primary Care Provider Address: [facility] [address] [place] [address] [place] Care Team Related Persons Name: ANGELIA WHITEHEAD
--- OUTSIDE RECORDS SUMMARY | 2024-01-15 10:38 | External Medical Summary | Summary of Care ---
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 Name Role Phone Yamilet Mc MD Primary Care Provider Reason for Visit * Reason Onset Date Comments Forms Request 01/02/2024 Pre Op Clearance Encounter Details Date Type Department Care Team (Late st Contact Info) Description 01/02/2024 Telephone Family Practice [facility] [address] [place] [address] Yamilet Mc MD [address] [place] [phone] Forms Request (Pre Op Clearance ) Allergies Active Allergy Reactions Criticality Noted Date [...] transplant History of prostate cancer 04/01/2009 Overview: [facility], brachytherapy. Dr Perez Hepatitis A 04/01/1955 [...] on file documented as of this encounter Miscellaneous Notes * Telephone Encounter - Chris Bryan CMA - 01/02/2024 11:20 AM EDT Faxed pt pre op clearance to [facility], confirmation received. documented in this encounter Plan of Treatment [...] this encounter Medical Devices Implanted Type Area [employer] Device Identifier Shelf Expiration Date Model / Serial / Lot Lens Intraoc 19.0 - [id number] - [id number] Implanted:Qty: 1 on 07/17/2022 by Orlando Dowling MD at OR [facility] Right: Eye BA[employer]CH [employer] LOMB 05/01/2027 [id number] / [id number] / [id number] Lens Intraoc 18.5 - [id number] - [id number] Implanted:Qty: 1 on 07/24/2022 by Orlando Dowling MD at [facility] Left: Eye BAUSCH & LOMB 05/01/2027 [id number] / [id number] / [id number] documented as of this encounter Advance Directives * No Code [...] of Attor avery? No Care Teams Solar Photovoltaic Crew Lead Relationship Specialty Start Date End Date Yamilet Mc MD [address] [place] [address] PCP - General Internal Medicine 12/22/20 documented as of this encounter
--- NOTE | 2024-01-15 10:50 | Post Operative Brief Note ---
Immediate Post Op Note Date of Surgery January 15, 2024 Pre & Post Diagnosis Operation Date: 01/15/24 08:50 Pre-Op Diagnosis: Left knee osteoarthritis. Post-Op Diagnosis: Left knee osteoarthritis. I identified the patient and participated in the time-out.: Yes Procedure Operation Date: 01/15/24 08:50 Actual Procedures p Left Total Knee Arthroplasty(Left) - Vaughn Avalos MD Surgeon Vaughn Avalos MD Order Manager Latosha/Mic Estimated Blood Loss 75 Findings Consistent with Post-Op Diagnosis Significant chondral disease medial femoral condyle with subchondral cyst formation medial femoral condyle approximately half centimeter in width and a centimeter in depth hypertrophic synovium Fluids See anesthesia report Complications None
--- NOTE | 2024-01-15 10:53 | Operative Report ---
Post Operative Report Pre & Post Diagnosis Operation Date: 01/15/24 08:50 Pre-Op Diagnosis: Left knee osteoarthritis. Post-Op Diagnosis: Left knee osteoarthritis. I identified the patient and participated in the time-out.: Yes Procedure Operation Date: 01/15/24 08:50 Actual Procedures p Left Total Knee Arthroplasty(Left) - Vaughn Avalos MD Surgeon Vaughn Avalos MD Mutuel Machine Operator Latosha/Mic Estimated Blood Loss 75 Findings Consistent with Post-Op Diagnosis Medial femoral condylar disease grade 3 and 4 with a large subchondral cyst proximately centimeter deep half centimeter wide some patellofemoral disease lateral compartment healthy marked hypertrophic synovium Fluids See anesthesia report Specimens Bone pathology and synovium Drains None Complications None Indications Continued pain severe pain failed conservative management including multiple arthroscopies done elsewhere multiple knee injections done elsewhere including viscosupplementation MRI scan revealing substantial medial compartment disease Description of Procedure After the patient was appropriate notified site verified consent verified antibiotics confirmed as being given the knee was examined revealing a moderate effusion there was no redness or warmth there was an old inverted smile incision from the laceration right at the center of the tibial tuberosity. Tourniquet was then applied applied and inflated for total of 55 minutes after leg was exsanguinated with a rubber bandage. Preoperative range of motion was near 0 to near 130 degrees. Once the incision was made care was taken distally to protect the flaps. When appropriate dissection was completed the arthrotomy was performed. There was exuberant clear yellow fluid. There was marked hypertrophic synovium and and some fibrinous deposits. These were all markedly debrided. There is no sign of any gross purulence or any type of acute infection. The patella was quite incarcerated with scar tissue was appropriately released internally and then was able to be everted the synovium was debrided. The knee was then flexed appropriate retractors placed he had noted root tear of his medial meniscus with the majority of the posterior third gone. The remaining meniscus was debrided. There was grade 3-4 changes of the medial femoral condyle weightbearing surface. Lateral compartment was healthy patellofemoral joint had grade 2-3+ changes. Distal femur was then resected 10 mm once this was done on encountered was a fairly large subchondral cyst on the medial side this was evacuated of synovial tissue this was roughly half centimeter wide and a centimeter deep. Proximal tibia was then resected 4 mm the extension gap was excellent with a 5 or 6 mm spacer at all that did feel little springy with a 6. The tibia was sized to a size 7 and the femur to a size 8. The cutting block for the femur was then placed and the anterior posterior condylar and chamfer cuts then made. Flexion gap was then checked and it was good with a 5 mm spacer. The box cut was then made and the size 8 femur was then applied which fit well. The tibia was then broached and reamed to a size 7. A 5 and 6 bases were trialed the 5 was a little bit more free and full extension and did not create any type of midrange instability. The flexion gap was nice and stable even at 120 degrees with marked posterior pressure. The patella was everted and resected leaving roughly 14 to 15 mm. A 41 trial was then seated and then tracked well. Ortho mix was then injected all around the knee. The trial implants were then removed the nasal was soaked in Betadine for 3 for full minutes and then the permanent cemented into position tibia femur and patella in that order at 12 minutes the tourniquet deflated bleeding points controlled electrocautery. Estimated EBL during the procedure was roughly 75 cc. Once the cement was hardened at 14 minutes the trial spacer was removed the knee was irrigated 1 final time with Pulsavac Betadine permanent liner seated after was soaked in Betadine and the knee reduced and closed at 40 degrees of flexion with #2 Vicryl 2-0 Vicryl standstill clips for the proximal two thirds of the wound and a 3-0 nylon for the area of the previous old laceration. There were horizontal and vertical mattress sutures. Dressing was then applied including Adaptic 4 x 4 gauze Kerlix Ruslan Blank cotton dressing. He was transferred to recovery in satisfactory descending tolerated procedure well. was contacted aware of his status that he is doing well. X-ray pending. Summary of implants size 8 left femur size 7 rotating platform tray size 41 patella size 8 x 5 mm rotating platform insert 2 bags of Palacos G cement. Implant style was ATT UNE Tapiture. I attest to the content of the Intraoperative Record and any orders documented therein. Any exceptions are noted below.
--- NOTE | 2024-01-15 11:00 | Operative Report ---
Post Operative Report Pre & Post Diagnosis Operation Date: 01/15/24 08:50 Pre-Op Diagnosis: Left knee osteoarthritis. Post-Op Diagnosis: Left knee osteoarthritis. I identified the patient and participated in the time-out.: Yes Procedure Operation Date: 01/15/24 08:50 Actual Procedures p Left Total Knee Arthroplasty(Left) - Vaughn Avalos MD Surgeon Vaughn Avalos MD Surveillance System Monitor Latosha/Mic Estimated Blood Loss 75 Findings Consistent with Post-Op Diagnosis Specimens Bone pathology and synovium Description of Procedure Patient underwent spinal anesthesia was brought to the operative suite where he underwent sedation. After extremity was identified, prepped and draped in the usual sterile fashion. A surgical timeout was performed. Patient underwent a left total knee arthroplasty, please see Dr. Avalos's operative report for full details. I was present and assisted with patient positioning, limb pos itioning, soft tissue retraction, surgical exposure, bony resection, hardware placement, wound closure, postoperative dressing basement. The patient was awakened and taken to the recovery room in stable condition. I attest to the content of the Intraoperative Record and any orders documented therein. Any exceptions are noted below.
--- NOTE | 2024-01-15 11:02 | Discharge Summary ---
Date of Service January 16, 2024 Admission HPI Per Admitting Provider History of Present Illness (including history relevant to procedure): This 78-year-old male presents to clinic today for his preoperative history and physical. Patient has a longstanding history of left knee pain with multiple trials of conservative management including multiple corticosteroid injections, use of nonsteroidal agents, viscosupplementation, PRP, radiofrequency ablation and 2 arthroscopic procedures. Patient states that his pain is persistent and intermittently radiates up and down his leg. He feels that his gait is affected and at times he does develop pain in his hip. 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 He states that he golfs on a regular basis and the pain in his knee makes it difficult to complete an entire round. Patient is elected to proceed with surgical intervention at this time. Review Of Systems: A 12 point review of systems is performed and is unremarkable except for those things stated in the HPI past medical history. Past Medical History: Problems: Osteoarthritis of left knee History of prostate cancer Procedure History Procedure Procedure Date Comments Spine surgery Shoulder surgery Cataract removal Carpectomy Left knee arthroscopy x 2 Bilateral carpal tunnel and cubital tunnel release Allergies and Sensitivities: Adhesives Current Home Meds: (Last Updated 12/17 09:42) tamsulosin (tamsulosin 0.4 mg oral capsule) 0.4 mg PO Daily Principal Diagnosis Osteoarthritis left knee with hypertrophic synovium Discharge Data Allergies Allergy/AdvReac Type Severity Reaction Status Date / Time adhesive tape Allergy Intermediate welts Verified 01/15/24 06:39 Vaccinations None Consultations None Procedures Performed Operation Date: 01/15/24 08:50 Actual Procedures p Left Total Knee Arthroplasty(Left) - Vaughn Avalos MD Ordered Studies 01/15/24 05:00 US - OR guided needle placemen Routine Hospital Course (1) Status post left knee replacement: Care management plan for total knee replacement discharge in 23 hours if he is doing well overnight. Total Time Total Time Spent Total Time Spent (In Minutes): 5 Discharge Plan Discharge Items Patient Disposition: Home - Self-Care Reason For Visit: Left Knee Osteoarthritis Discharge Diagnosis: Osteoarthritis left knee Condition on Discharge: Good Activity: Per Instructions section Lifting: Gradually increase as tolerated Bathing: Keep incision dry Sexual Activity: Wait until after follow-up appointment Exercise/Sports: Wait until after follow-up appointment Weightbearing: Full weightbearing Non-emergency contact: Surgeon Call non-emergency contact if: you have any medication questions, your symptoms worsen and your pain is not controlled Follow-up/Referrals: Albino De Oliveira MD [Surgeon] - Vaughn Avalos MD [Surgeon] - Diet: Regular Diet Texture: Pureed (blended smooth) Liquid Consistency: Honey thick Addtl Attending Provider Instructions: New Medicine: * You will likely be taking one or more of these medications: 1. Percocet - Take, as directed, when you need it, every four to six hours to control your pain. 2. Iron Sulfate - Take 1x each day for the month after surgery to help you replace the blood lost during surgery. 3. Eliquis - Thins your blood to lessen the chance of forming a blood clot. * The most common side effects of pain medicine and iron are nausea and constipation. If nausea or constipation is too much of a problem or if you have any questions about your new medicines or doses, call [facility] at . We will try to help you manage these issues. "VERY IMPORTANT TO READ AND REVIEW" Blood Clots and Blood Thinning Medicine: * You are given Eliquis during the immediate post-operative period to lessen the risk of blood clots forming in your legs and/or lungs. It is usually given for 4 weeks after surgery. Pain: * The immediate post-operative period after knee replacement surgery is often quite painful. * You are given a prescription for pain medicine. You should take it, as directed, when you need it, especially before physical therapy and before going to bed. Pain that interferes with sleep is very common and can last several months. * You will likely need pain medicine for the first four to six weeks. It will not stop all of the pain. The pain will lessen and as you feel better, you may change to milder pain medicine such as Tylenol. * The most common side effects of pain medicine are nausea and constipation, so don't take more than you need. Physical Therapy: * You will have physical therapy two or three times each week for four to six weeks after your surgery in order to regain your knee range of motion and to retrain your knee to work properly. * It is just as important to make sure you are getting your knee perfectly straight as it is to regain your knee bend. * Taking a pain pill an hour before therapy can help you have a more productive and comfortable therapy session if needed. Home Exercise: * You were shown a series of exercises (heel props, heel slides, etc.) in the hospital. Do these exercises three to four times each day including the exercises you were shown in physical therapy. Walking: * Get up and walk several times each day. For the first four weeks, try not to stand or walk for more than one hour at a time. If you do stand or walk for more than one hour, you will not hurt anything, but your knee and leg will likely swell. * As you feel comfortable, you may change from the walker or crutches to a cane and then to independent walking. SELF CARE INSTRUCTIONS AFTER TOTAL KNEE REPLACEMENT A. You may need to continue a physical therapy program after discharge from the hospital. There are several options available to you. Your doctor will assist you in selecting the best one for you. 1. An out-patient facility 2 to 3 times a week for therapy or home therapy. 2. Continue working on all exercises taught to you in the hospital. Your goals should be to increase bending of your knee to 90 degrees and beyond and to fully straighten your knee. B. You may progress at your own pace from walking with a walker or crutches to a cane; then to no assistive devices. C. Make walking a part of your daily routine. Be up as much as comfortable with rest periods throughout the day. Rest with leg elevation is very important. Use the ice wrap frequently for the first 3-4 weeks. D. There are no restrictions on activities. You may ride in a car, shop, participate in software support technician and all social activities. E. Wear the long elastic stockings (DAPHNE hose) 20 hours a day for six weeks after surgery. They can be removed several times a day for laundering and for a shower. F. Do not place a pillow behind your knee when resting. A pillow at your ankle is okay. G. You may return to previous diet. VERY IMPORTANT TO READ AND REVIEW A. Take Eliquis (blood thinning medication) as directed by your doctor. B. There are a few signs you need to watch for after you are home. Call [facility] if you notice any of the followin. Increased severe knee pain. Some pain is expected especially when you exercise. 2. Increased swelling in your leg or knee; pain or swelling of the calf muscle in either lower leg. 3. Any fluid drainage from the incision. 4. Shortness of breath or chest pain. C. Please call [facility] at if you have any concerns or questions about your operation or recovery. The doctor or his nurse will return your call promptly. D. You must take antibiotics before dental work, bladder, bowel or other surgery. Call the office to obtain a prescription at least 2 days prior to your appointment. * CALL IF INCREASED PAIN, REDNESS, DRAINAGE OR FEVER GREATER THAT 101. * Sutures should be removed 12-14 days after surgery unless you are on chronic steroids, then it will be 14-18 days after surgery. Call your doctor if: * Temperature above 101 degrees F. * Pain not relieved by pain medicine ordered. * Increased drainage or redness from incision. * Notify your doctor with any questions or concerns. MEDICATIONS: * Please take your prescriptions as instructed at your pre-op appointment and/or see medication discharge instructions listed above. * If concerns develop, call your physician's office at . SPECIAL CARE INSTRUCTIONS: * Ice/Elevate as instructed. * Keep dressing clean, dry, intact. * Your surgical extremity may be discolored due to prepping agents used on the skin. A bluish-green tint is a normal variant and should not cause alarm. Call your doctor at [phone] if: * Temperature above 101 degrees * Pain not relieved by pain medicine ordered * There is increased drainage or redness from any incision * You have any unanswered questions, problems or concerns. FOLLOW UP VISIT: * If not already scheduled, please call the office at to schedule a follow-up appointment. Use the knee immobilizer today and tomorrow when out of bed. It can be discontinued entirely on Saturday morning. Keep the dressings clean and dry. Follow-up in the office in 2 weeks as scheduled for staple removal. ce and elevate the knee frequently to reduce pain and swelling. Use your walker for ambulation and standing. Stand-Alone Forms: [employer], Smoking Cessation Medications and DC Order Prescriptions: No Action tamsulosin 0.4 mg Capsule 0.4 mg PO HS Discharge Orders: Discharge Order (Routine); Ordered 01/16/24 Ordered By: Vaughn Avalos Admission Data Admit Date/Time: 01/15/24 11:11 Attending Provider: Vaughn Avalos Admit Provider: Vaughn Avalos Primary Care Provider: Yamilet Mc
--- NOTE | 2024-01-15 11:03 | Orthopedic Progress Note ---
Date of Service January 15, 2024 Orthopedic Progress Note Patient underwent cemented left total knee replacement. Tolerated procedure well. Denies chest pain shortness of breath fever chills nausea vomiting or headache. Vital signs are stable he is afebrile. Neurovascular check limited by spinal. Wound dressing clean dry and intact. X-ray pending. Family contacted.
--- NOTE | 2024-01-15 11:14 | Operative Report ---
Post Operative Report Pre & Post Diagnosis Operation Date: 01/15/24 08:50 Pre-Op Diagnosis: Left knee osteoarthritis. Post-Op Diagnosis: Left knee osteoarthritis. I identified the patient and participated in the time-out.: Yes Procedure Operation Date: 01/15/24 08:50 Actual Procedures p Left Total Knee Arthroplasty(Left) - Vaughn Avalos MD Surgeon NARENDRA Avalos MD Continuous Improvement Intern Latosha/Mic RATLIFF Estimated Blood Loss 75 Findings Consistent with Post-Op Diagnosis see operative report Specimens see operative report Drains none Complications none Disposition Accompanied Patient To Recovery: Yes Indications This 78 year old male presented to the office complaints of persisting left knee pain. He had tried conservative care measures, including arthroscopy, without improvement of his knee pain. He elected to proceed with further surgical intervention in hopes of improving his pain and function. Preoperative imaging was obtained. Description of Procedure The patient was administered a spinal anesthetic and then taken to the operating room where he was given sedation. He was prepped and draped in the usual sterile fashion. Please see Dr. Avalos's operative report for specifics of the procedure. I was present for the entire case from initial patient positioning through final wound closure. Assistance was provided in tissue retraction, hemostasis, trial implant placement, final implant placement, and final wound closure. The patient was taken to the recovery room in satisfactory condition. I attest to the content of the Intraoperative Record and any orders documented therein. Any exceptions are noted below.
--- NOTE | 2024-01-15 12:21 | XRay Report ---
XR knee LT 1 or 2V routine CLINICAL HISTORY: S/P L TKA TECHNIQUE: 2 views of the right knee were obtained. Comparison: Comparison is made to knee radiographs 12/09/2023 FINDINGS: Patient is status post total knee arthroplasty with expected postsurgical changes including soft tiss ue swelling and subcutaneous emphysema. No periarticular lucency or hardware fracture is seen. IMPRESSION: Expected postoperative appearance status post placement of total knee arthroplasty. ACT 112: Negative or not required by law. Electronically signed by: Alvin Maharaj M.D. 01/15/2024 12:20 PM
[2024-01-15] MEDS ORDERED: NALOXONE HCL 0.4 MG/1 ML VIAL/CARP IV PRN (12:55)
[2024-01-15] MEDS ORDERED: MAGNESIUM HYDROXIDE SUSP 30 ML UDC PO PRN (12:55)
[2024-01-15] MEDS ORDERED: bisacodyL 10 MG SUPP PR PRN (12:55)
[2024-01-15] MEDS ORDERED: ALUMINUM/MAGNESIUM SUSP 30 ML UDC PO PRN (12:55)
[2024-01-15] MEDS ORDERED: HYDROmorphone INJ 0.5 MG/0.5 ML SYR IV PRN (12:55)
[2024-01-15] MEDS ORDERED: diphenhydrAMINE 50 MG/ML VIAL IV PRN (12:55)
[2024-01-15] MEDS ORDERED: METOCLOPRAMIDE HCL INJ 5 MG/ML 2 ML VIAL IV PRN (12:55)
[2024-01-15] MEDS ORDERED: VANCOMYCIN CONSULT ACTIVE PRN (12:55)
[2024-01-15] MEDS ORDERED: ONDANSETRON INJ 2 MG/ML 2 ML VIAL IV PRN (12:55)
--- NOTE | 2024-01-15 13:00 | Anesthesiology Progress Note ---
Date of Service January 15, 2024 Anesthesia Post Procedure Vital Signs Vital Signs: Temp Pulse Pulse Resp BP Pulse Ox O2 Del Method 01/15/24 12:46 61 16 108/67 98 Room Air 01/15/24 12:30 55 L 15 105/65 96 Room Air 01/15/24 12:15 36.3 C L 60 15 103/65 96 Room Air 01/15/24 12:05 53 L 15 108/64 96 Room Air 01/15/24 11:55 52 L 15 102/62 97 Room Air 01/15/24 11:45 62 17 111/76 95 Room Air 01/15/24 11:35 58 L 19 110/65 94 Room Air 01/15/24 11:25 59 L 20 107/65 96 Room Air 01/15/24 11:15 68 24 109/65 100 Oxymask 01/15/24 11:05 64 18 111/65 100 Oxymask 01/15/24 10:59 36 C L 71 14 108/61 98 Oxymask 01/15/24 06:35 36.1 C L 55 L 20 126/82 97 Room Air O2 Flow Rate 01/15/24 12:46 01/15/24 12:30 01/15/24 12:15 01/15/24 12:05 01/15/24 11:55 01/15/24 11:45 01/15/24 11:35 01/15/24 11:25 01/15/24 11:15 2 01/15/24 11:05 4 01/15/24 10:59 6 01/15/24 06:35 Transfer of Care Handoff Completed per policy Notes Mental Status: alert / awake / arousable Patient Amnestic to Procedure: Yes Nausea / Vomiting: adequately controlled Pain: adequately controlled Airway Patency, RR, SpO2: stable & adequate BP & HR: stable & adequate Hydration State: stable & adequate Neuraxial Anesthesia: was administered and sensory block is resolving Anesthetic Complications: no major complications apparent
[2024-01-15] MEDS: KETOROLAC TROMETHAMINE 15 MG/ML VIAL IV SCH (13:46)
[2024-01-15] MEDS: VANCOMYCIN HCL 1,250 MG in SODIUM CHLORIDE 0.9% 500 ML IV ONE (14:40)
[2024-01-15] MEDS: ACETAMINOPHEN 500 MG TAB PO SCH (14:51)
[2024-01-15] MEDS: SODIUM CHLORIDE 0.9% 1,000 ML IV SCH (15:33)
[2024-01-15] MEDS: ASCORBIC ACID 500 MG TAB PO SCH (18:41)
[2024-01-15] MEDS: FERROUS GLUCONATE 324 MG TAB PO SCH (18:41)
[2024-01-15] MEDS: oxyCODONE HCL IR 5 MG TAB (IMMEDIATE RELEASE) PO PRN (19:37)
[2024-01-15] MEDS: TAMSULOSIN HCL 0.4 MG CAP PO SCH (21:38)
[2024-01-15] MEDS: SENNA 8.6 MG TAB PO SCH (21:38)
[2024-01-15] MEDS: DOCUSATE SODIUM 100 MG CAP PO SCH (21:38)
[2024-01-16 06:14] LABS: Hematocrit (blood only) 33.5 % (42.0-52.0); Hemoglobin 10.7 g/dl (14.0-18.0); Mean Corpuscular Hemoglobin 28.1 pg (25.0-34.0); Mean Corpuscular Hgb Conc 31.9 g/dL (32.0-36.0); Mean Corpuscular Volume 87.9 fL (80.0-100.0); Mean Platelet Volume 8.5 fL (9.4-12.4); Platelet Count 214 K/uL (130-400); RDW Coefficient of Variation 14.5 % (11.5-14.5); RDW Standard Deviation 46.4 fL (36.4-46.3); Red Blood Count 3.81 M/uL (4.70-6.10); White Blood Count 10.15 K/ul (4.8-10.8)
[2024-01-16 06:29] LABS: BUN Creatinine Ratio 22.2 (10-20); Calcium 9.1 mg/dl (8.6-10.3); Creatinine Clr Calc Pharmacy 69.7 ml/min; Potassium 4.5 mmol/L (3.5-5.1)
--- NOTE | 2024-01-16 06:47 | Orthopedic Progress Note ---
Date of Service January 16, 2024 Assessment & Plan Admission and Anticipated Discharge Date Admission Date: January 15, 2024 Orthopedic Progress Note Postop day #1 status post left total knee replacement. Patient notes that his block is wearing off and has some discomfort. Was encouraged to continue to do his exercises. Was able to show him how to do a straight leg raise by dorsiflexing his ankle pushing his knee into the bed and then lifting his leg. He was able to do it then. Vital signs are stable he is afebrile. Neurovascular check femoral sciatic nerve is normal. Wound dressing clean dry and intact. Hematocrit stable at 33+ this morning. Assessment doing well status post left total knee replacement. Encouraged him to do his exercises. He he is a little bit shy on doing that. Needs to be encouraged. Will have dressing change later this morning. Start his Eliquis this morning. Advised that his prescriptions will be sent to his pharmacy electronically. He is starting outpatient PT sometime later this week or early next week. Advised to call the office with any questions.
[2024-01-16 07:28] VITALS: RESP 16; TEMP 97.3
[2024-01-16] MEDS: dexAMETHasone 10 MG in SYRINGE 0 ML IV SCH (07:33)
--- NOTE | 2024-01-16 09:03 | Orthopedic Progress Note ---
Date of Service January 16, 2024 Assessment & Plan (1) Status post left knee replacement: Plan: The patient was educated regarding today's findings. His postsurgical dressing was changed today by me and his DAPHNE stocking was applied. He may be discharged to home today after participating with PT/OT. Continue wearing the knee immobilizer today and tomorrow when out of bed. It can be discontinued entirely on Saturday morning. He will start his Eliquis this morning. Continue it twice daily for a month. Prescriptions for Eliquis 2.5 mg and Percocet 5/325 mg will be sent to his pharmacy. Call the office with any other concerns. Weight-bear as tolerated using his walker. He has physical therapy set up in [place] for next week. Return to the office on February 02 at 10 AM with me for staple removal. Admission and Anticipated Discharge Date Admission Date: January 15, 2024 Subjective This 78-year-old male is seen today in his room. He is 1 day status post left total knee arthroplasty. He states he had a bit of a rough night. He is having some pain this morning. He denies any chest pain, shortness of breath, nausea, vomiting, or abdominal pain. He has finished his breakfast. He is waiting for physical therapy. No additional complaints at this time. He thinks he is well enough to go home today. Review of Systems Review of Systems: Unchanged from yesterday. Physical Exam Physical Exam: General: Well-developed, well-nourished, elderly male, in no acute distress. Laying in bed. Alert and oriented. Complaining of some discomfort in his knee and thigh. Skin: Warm dry with good turgor. No rashes. He has postsurgical dressings in place on his left leg. Upon removal, there is no ecchymosis or erythema. Expected postoperative edema at the knee. Surgical incision is closed. [place] are in place. Wound edges are well-approximated. He has scant dried blood on his inner dressings. There is no active bleeding at this time. Musculoskeletal: The patient has intact motor function of his left ankle and toes. He is able to dorsiflex his toes, set his quad, and perform a low straight leg raise. He has full extension. Flexion to 50 degrees with minimal difficulty. Neurologic: Gross sensation is intact across both lower extremities by soft touch. Peripheral pulses are 2+. Results & Data Vital Signs (Past 12 Hours) Vital Signs Temp Pulse Resp BP Pulse Ox O2 Del Method 01/16/24 07:28 36.3 C L 86 16 104/68 96 Room Air 01/16/24 06:37 37.1 C 95 H 14 101/62 96 Room Air 01/16/24 01:05 36.8 C 85 12 96/58 L 94 Room Air 01/15/24 22:29 97/63 L 01/15/24 21:14 36.8 C 84 16 95/57 L 98 Room Air Laboratory Results CBC obtained this morning shows a white count of 10.15. H&H of 10.7 and 33.5. Platelets 214,000. PRP this morning shows normal electrolytes. BUN of 20 with creatinine 0.9. Glucose this morning is 110. Calcium is normal at 9.1.
[2024-01-16] MEDS: APIXABAN 2.5 MG TAB PO SCH (09:25)
[2024-01-16] MEDS: MULTIVITAMIN TAB PO SCH (09:25)
[2024-01-16] MEDS: HYDROmorphone INJ 0.5 MG/0.5 ML SYR IV STA (11:01)
[2024-01-16 12:33] VITALS: BP 127/81; PULSE 87; O2SAT 95
== END 2024-01-16 13:55 | disposition home or self-care (01) ==
LOC: 3E 06:09 → ASU 06:09